=== PATIENT | female | born 1975 | race African-American/Black ===

== ENCOUNTER 2016-04-14 23:07 | Emergency (ER) | payer BC ==
[2016-04-14 23:17] VITALS: BP 123/71; PULSE 83; TEMP 99.4; BMI 25.4
[2016-04-14] MEDS ORDERED: SODIUM CHLORIDE 0.9% 1000 ML INFUS.BAG IV ONE (23:52)
[2016-04-14] MEDS ORDERED: ACETAMINOPHEN 1000 MG/100 ML VIAL (NON FORMULARY) IVPB ONE (23:52)
[2016-04-15] MEDS ORDERED: ACETAMINOPHEN INJECTION 100 ML IVPB ONE (00:14)
--- NOTE | 2016-04-15 00:14 | PDOC ---
History of Present Illness - General Chief Complaint: Respiratory Stated Complaint: FEVER/ 8 WKS Time Seen by Provider: 04/14/16 23:33 History Source: Patient Exam Limitations: No Limitations - History of Present Illness Initial Comments: 04/14/16 23:48 Patient is a 40-year-old female history of seasonal allergies, who is 8 weeks complaining of runny nose, body ache, chills since today. States she feels like her eyes are on fire in her ears are burning throbbing pain to the throat. States that about 9:00 she took her temperature and it was 100.3 she took Tylenol at 6 PM without relief of symptoms. Positive flu shot December. She denies any abdominal pain, dysuria, vaginal bleeding. PMD: Dr. Pina OBS: Dr. Gallardo PMHx: As above PSocHx: Negative cigarette, neg etoh, neg drugs FamHX: Noncontributory ALL: PCN GENERAL/CONSTITUTIONAL: [No fever or chills. No weakness. No weight change.] HEAD, EYES, EARS, NOSE AND THROAT: [No change in vision. No ear pain or discharge. No sore throat, (+) rhinorrhea.] CARDIOVASCULAR: [No chest pain or shortness of breath.] RESPIRATORY: [No cough, wheezing, or hemoptysis.] GASTROINTESTINAL: [No nausea, vomiting, diarrhea or constipation. No rectal bleeding.] GENITOURINARY: [No dysuria, frequency, or change in urination.] MUSCULOSKELETAL: [No joint pain or swelling (+) muscle pain. No neck or back pain.] SKIN AND BREASTS: [No rash or easy bruising.] NEUROLOGIC: [No headache, vertigo, loss of consciousness, or loss of sensation.] PSYCHIATRIC: [No depression or anxiety.] ENDOCRINE: [No increased thirst. No abnormal weight change.] HEMATOLOGIC/LYMPHATIC: [No anemia, easy bleeding, or history of blood clots.] ALLERGIC/IMMUNOLOGIC: [No hives or skin allergy. No latex allergy.] GENERAL: [The patient is awake, alert, and fully oriented, in mild acute distress.] HEAD: [Normal with no signs of trauma.] EYES: [Pupils equal, round and reactive to light, extraocular movements intact, sclera anicteric, conjunctiva clear.] ENT: [Ears normal, nares patent, oropharynx mild erythema, without exudates. Moist mucous membranes.] NECK: [Normal range of motion, supple without lymphadenopathy, JVD, or masses.] LUNGS: [Breath sounds equal, clear to auscultation bilaterally. No wheezes, and no crackles.] HEART: [Regular rate and rhythm, normal S1 and S2 without murmur, rub.] ABDOMEN: [Soft, nontender, normoactive bowel sounds. No guarding, no rebound. No masses.] EXTREMITIES: [Normal range of motion, no edema. No clubbing or cyanosis. No cords, erythema, or tenderness.] NEUROLOGICAL: [Cranial nerves II through XII grossly intact. Normal speech, normal gait.] PSYCH: [Normal mood, normal affect.] SKIN: [Warm, Dry, normal turgor, no rashes or lesions noted.] Past History - Past Medical History Allergies/Adverse Reactions: Allergies Allergy/AdvReac Type Severity Reaction Status Date / Time Penicillins Allergy Verified 04/14/16 23:15 Home Medications: Ambulatory Orders NK [No Known Home Medication] 04/15/16 Disorders: Yes (VAGINAL HERPES) Suicide Attempt (Hx): No - Psycho/Social/Smoking Cessation Hx Suicidal Ideation: No Smoking History: Never smoked *Physical Exam - Vital Signs Last Vital Signs Temp Pulse Resp BP Pulse Ox 99.4 F 83 18 123/71 100 04/14/16 23:11 04/14/16 23:11 04/14/16 23:11 04/14/16 23:11 04/14/16 23:11 ED Treatment Course - LABORATORY CBC & Chemistry Diagram: 04/15/16 01:30 04/15/16 01:30 Medical Decision Making - Medical Decision Making 04/15/16 01:34 Patient is a 40-year-old female history of seasonal allergies, who is 8 weeks complaining of runny nose, body ache, chills since today. most likely viral illness but to rule out the flu Tylenol 1 g IV, IV fluids, labs. Reassess 04/15/16 01:39 Rapid strep negative influenza negative Laboratory Tests 04/15/16 04/15/16 01:30 01:30 WBC 7.9 Hgb 11.5 D Hct 35.1 D Plt Count 297 Sodium 138 Potassium 3.8 Chloride 104 Carbon Dioxide 24 Anion Gap 10 BUN 7 Creatinine 0.5 L Patient feels better after hydration and tylenol I discussed the physical exam findings, ancillary test results and final diagnoses with the patient. I answered all of the patient's questions. The patient was satisfied with the care received and felt comfortable with the discharge plan and treatment plan. The Patient agrees to follow up with the primary care physician within 24-72 hours. *DC/Admit/Observation/Transfer Diagnosis at time of Disposition: Viral illness - Discharge Dispostion Disposition: HOME Condition at time of disposition: Stable - Referrals Referrals: Karl Pina MD [Primary Care Provider] - - Patient Instructions Printed Discharge Instructions: DI for Viral Pharyngitis Additional Instructions: Your Discharge Instructions: You must call primary care physician within 24 hours to arrange follow-up. Return to the Emergency Department with any new, persistent or worsening symptoms, for fever, chills, SOB, dizziness or any other concerning changes that may occur. - Post Discharge Activity Work/School Note: Back to Work
[2016-04-15 01:32] LABS: MCHC 32.6 g/dl (32.0-36.0); MEAN CELL VOLUME 91.9 fl (80-96); MEAN PLT VOLUME 9.3 fl (7.5-11.1); PLATELET COUNT 297 K/MM3 (134-434); RDW 12.8 % (11.6-15.6); WHITE BLOOD COUNT 7.9 K/mm3 (4.0-10.0)
[2016-04-15 01:51] LABS: CALCIUM 8.2 mg/dL (8.5-10.1); CREATININE 0.5 mg/dL (0.55-1.02)
== END 2016-04-15 02:31 | disposition home or self-care (01) ==
LOC: JER 23:07
PROC: 3E033NZ Introduction of Analgesics, Hypnotics, Sedatives into Peripheral Vein, Percutaneous Approach (ICD-10-PCS; principal; 2016-04-14)
DX: O98.511 Other viral diseases complicating pregnancy, first trimester (principal); J02.9 Acute pharyngitis, unspecified; B97.89 Other viral agents as the cause of diseases classified elsewhere; Z3A.08 8 weeks gestation of pregnancy
CPT/HCPCS: 36415; 80048; 85027; 87070; 87430; 87804; 99282-25

== ENCOUNTER 2016-11-20 19:15 | Inpatient (IN) | payer BC ==
[2016-11-20] MEDS ORDERED: DEXTROSE 5%-LACTATED RINGERS 1,000 ML IV SCH ×2 (21:00→22:15)
[2016-11-20] MEDS ORDERED: DINOPROSTONE 10 MG VAGINAL SUPPOSITORY VG ONE (21:00)
[2016-11-20] MEDS ORDERED: TUBERCULIN PPD 5 TU/0.1ML SYRINGE (IN PATIENT USE ONLY) ID ONE (21:00)
[2016-11-20 21:02] LABS: BASOPHIL 0.4 % (0-2.0); EOSINOPHIL 0.7 % (0-4.5); MCH 31.2 pg (25.7-33.7); MCHC 34.2 g/dl (32.0-36.0); MEAN CELL VOLUME 91.2 fl (80-96); MEAN PLT VOLUME 8.3 fl (7.5-11.1); PLATELET COUNT 342 K/MM3 (134-434); RDW 14.8 % (11.6-15.6)
[2016-11-20 21:25] VITALS: BMI 27.4
[2016-11-20 21:28] LABS: ANION GAP 10 (8-16); CALCIUM 9.2 mg/dL (8.5-10.1); CO2 23 mmol/L (21-32); CREATININE 0.6 mg/dL (0.55-1.02); GLUCOSE,RANDOM 75 mg/dL (74-106)
[2016-11-20 21:43] LABS: INR 0.96 (0.82-1.09); PROTHROMBIN TIME (PATIENT) 10.6 SEC (9.98-11.88)
--- NOTE | 2016-11-20 22:15 | HP ---
Past Medical History - Admission Chief Complaint: Elective induction History of Present Illness: 40 yo @ 39 weeks gestation, presents for induction of labor. EDC 11/24/16 She denies any vaginal bleeding nor ROM. History Source: Patient Limitations to Obtaining History: No Limitations - Past Medical History ...: 2 ...Para: 1 ...Term: 1 ...: 0 ...Spon : 0 ...Induced : 0 ...Multiple Gestation: 0 ...EDC by Sono: 11/24/16 - Past Surgical History Past Surgical History: Yes: None Hx Myomectomy: No Hx Transabdominal Cerclage: No - Smoking History Smoking history: Never smoked Have you smoked in the past 12 months: No - Alcohol/Substance Use Hx Alcohol Use: No History of Substance Use: reports: None - Social History Usual Living Arrangement: Yes: With Significant Other History of Recent Travel: No Home Medications - Allergies Allergies/Adverse Reactions: Allergies Allergy/AdvReac Type Severity Reaction Status Date / Time Penicillins Allergy Verified 04/14/16 23:15 - Home Medications Home Medications: Ambulatory Orders Tablet 1 tablet PO DAILY 11/20/16 Family Disease History - Family Disease History Family History: Unremarkable Review of Systems - Review of Systems Constitutional: reports: No Symptoms Eyes: reports: No Symptoms HENT: reports: No Symptoms Neck: reports: No Symptoms Cardiovascular: reports: No Symptoms Respiratory: reports: No Symptoms Gastrointestinal: reports: No Symptoms Genitourinary: reports: No Symptoms Breasts: reports: No Symptoms Reported Musculoskeletal: reports: No Symptoms Integumentary: reports: No Symptoms Neurological: reports: No Symptoms Endocrine: reports: No Symptoms Hematology/Lymphatic: reports: No Symptoms Psychiatric: reports: No Symptoms Pain Intensity: 0 Physical Exam - Maternity Vital Signs: Vital Signs Temperature 98.2 F 11/20/16 22:00 Pulse Rate 85 11/20/16 22:00 Respiratory Rate 18 11/20/16 22:00 Blood Pressure 115/73 11/20/16 22:00 O2 Sat by Pulse Oximetry (%) Constitutional: Yes: Well Nourished Eyes: Yes: Conjunctiva Clear HENT: Yes: Atraumatic Neck: Yes: Supple Cardiovascular: Yes: Regular Rate and Rhythm Lungs: Clear to auscultation - Abdominal Exam/OB Number of Fetuses: Single Presentation: Vertex Contractions: No - Vaginal Exam/OB Vaginal Bleediing: No Dilatation (cm): 0 Effacement (%): 60 Station: -2 - Physical Exam Musculoskeletal: Yes: WNL Extremities: Yes: WNL ...Motor Strength: WNL Psychiatric: Yes: Alert, Oriented - Labs Lab Results: CBC, BMP 11/20/16 20:50 11/20/16 20:50 Problem List - Problems (1) Code(s): Z34.90 - ENCNTR FOR SUPRVSN OF NORMAL , UNSP, UNSP TRIMESTER Qualifiers: Weeks of gestation: 39 weeks Qualified Code(s): Z3A.39 - 39 weeks gestation of (2) Advanced maternal age (AMA) in Code(s): RQA1809 - Assessment/Plan Advance maternal age in Admit for cervidil induction Re-evaluate in 12 hours or before if indicated
[2016-11-21] MEDS ORDERED: CLINDAMYCIN 900 MG PREMIX IVPB 50 ML IVPB ONE (06:30)
[2016-11-21] MEDS ORDERED: BUTORPHANOL TARTRATE 1 MG/ML VIAL IVPUSH PRN ×2 (10:14→10:15)
[2016-11-21] MEDS ORDERED: PROMETHAZINE HCL 25 MG/1 ML VIAL IVPUSH PRN (10:15)
[2016-11-21] MEDS ORDERED: OXYTOCIN 15 UNITS/ LR 250 ML 250 ML IVPB SCH (10:15)
[2016-11-21] MEDS: CLINDAMYCIN 600MG PREMIX IVPB 50 ML IVPB SCH ×2 (12:45→18:45)
[2016-11-21] MEDS ORDERED: METHYLERGONOVINE MALEATE 0.2 MG/1 ML AMP IM PRN (15:32)
[2016-11-21] MEDS ORDERED: BISACODYL 10 MG SUPP.RECT RC PRN (15:32)
[2016-11-21] MEDS ORDERED: WITCH HAZEL 50% (TUCKS) 40 PAD/JAR PAD TP PRN (15:32)
[2016-11-21] MEDS ORDERED: BENZOCAINE 28 GM HEMORRHOIDAL OINTMENT TP PRN (15:32)
[2016-11-21] MEDS ORDERED: BENZOCAINE 20% 57 GM BOTTLE TP PRN (15:32)
[2016-11-21] MEDS ORDERED: ACETAMINOPHEN 325 MG TABLET (FP) PO PRN (15:32)
[2016-11-21] MEDS ORDERED: IBUPROFEN 600 MG TABLET (FP) PO PRN (15:32)
--- NOTE | 2016-11-21 15:35 | PN ---
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
[2016-11-21] MEDS ORDERED: D5W-LR W/ 20 UNITS OXYTOCIN 1,000 ML IV SCH (15:45)
[2016-11-21] MEDS: FERROUS SO4 325 MG TABLET (FP) PO SCH (17:30)
[2016-11-21] MEDS: SENNOSIDES/DOCUSATE COMBO (SENNA PLUS) TABLET (UD) PO PRN (21:47)
[2016-11-22 08:11] LABS: BASOPHIL 0.2 % (0-2.0); EOSINOPHIL 0.5 % (0-4.5); MCH 31.2 pg (25.7-33.7); MCHC 34.3 g/dl (32.0-36.0); MEAN PLT VOLUME 7.9 fl (7.5-11.1); NEUTROPHILS 73.2 % (42.8-82.8); PLATELET COUNT 246 K/MM3 (134-434); RDW 14.8 % (11.6-15.6); WHITE BLOOD COUNT 11.2 K/mm3 (4.0-10.0)
[2016-11-22] MEDS: FERROUS SO4 325 MG TABLET (FP) PO SCH ×3 (09:08→17:46)
[2016-11-22] MEDS: PRENATAL VITAMINS W/ FOLIC ACID TABLET (FP) PO SCH (09:08)
--- NOTE | 2016-11-22 09:14 | PN ---
Post Progress Note - Subjective Subjective: Pt seen/evaluated and doing well. Pain controlled, tolerating diet, ambulating , voiding, passing flatus. Type of Delivery: Vital Signs: Vital Signs Temperature 98.0 F 11/22/16 06:00 Pulse Rate 74 11/22/16 06:00 Respiratory Rate 20 11/22/16 06:00 Blood Pressure 121/74 11/22/16 06:00 O2 Sat by Pulse Oximetry (%) 98 11/21/16 16:31 Breast Exam: Yes: Soft Uterus: Yes: Fundus Firm, Fundus below umbilicus Abdomen/GI: Yes: Abdomen soft, Passing flatus, Tolerating PO. No: Tender Lochia: Yes: Rubra Lochia, amount: Small Extremities: Yes: Calves non-tender. No: Edema Perineum: Yes: Intact Activity: Ambulating - Labs Labs: CBC WBC 11.2 K/mm3 (4.0-10.0) H D 11/22/16 06:00 RBC 2.83 M/mm3 (3.60-5.2) L D 11/22/16 06:00 Hgb 8.8 GM/dL (10.7-15.3) L D 11/22/16 06:00 Hct 25.8 % (32.4-45.2) L D 11/22/16 06:00 MCV 91.0 fl (80-96) 11/22/16 06:00 MCH 31.2 pg (25.7-33.7) 11/22/16 06:00 MCHC 34.3 g/dl (32.0-36.0) 11/22/16 06:00 RDW 14.8 % (11.6-15.6) 11/22/16 06:00 Plt Count 246 K/MM3 (134-434) D 11/22/16 06:00 MPV 7.9 fl (7.5-11.1) 11/22/16 06:00 Neutrophils % 73.2 % (42.8-82.8) D 11/22/16 06:00 Lymphocytes % 20.0 % (8-40) D 11/22/16 06:00 Monocytes % 6.1 % (3.8-10.2) 11/22/16 06:00 Eosinophils % 0.5 % (0-4.5) 11/22/16 06:00 Basophils % 0.2 % (0-2.0) 11/22/16 06:00 Problem List - Problems (1) Normal vaginal delivery Code(s): O80 - ENCOUNTER FOR FULL-TERM UNCOMPLICATED DELIVERY (2) Anemia Code(s): D64.9 - ANEMIA, UNSPECIFIED (3) Anemia complicating puerperium Code(s): O99.03 - ANEMIA COMPLICATING THE PUERPERIUM Assessment/Plan 40 y/o PPD#1 s/p normal - AFVSS - Hgb 8.8 post delivery ,continue vitamins and PO Iron - regular diet, PO pain meds, routine care
[2016-11-22] MEDS ORDERED: DIPHTH,PERTUSS(ACELL),TET 0.5 ML DISP.SYRIN IM ONE (10:00)
[2016-11-22] MEDS: SENNOSIDES/DOCUSATE COMBO (SENNA PLUS) TABLET (UD) PO PRN (20:15)
[2016-11-23 08:10] VITALS: BP 121/86; PULSE 79; TEMP 98.5
[2016-11-23] MEDS: FERROUS SO4 325 MG TABLET (FP) PO SCH (08:45)
[2016-11-23] MEDS: SENNOSIDES/DOCUSATE COMBO (SENNA PLUS) TABLET (UD) PO PRN (09:44)
[2016-11-23] MEDS: PRENATAL VITAMINS W/ FOLIC ACID TABLET (FP) PO SCH (09:45)
--- NOTE | 2016-11-23 10:07 | DS ---
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 Vital Signs: Vital Signs Temperature 98.5 F 11/23/16 08:05 Pulse Rate 79 11/23/16 08:05 Respiratory Rate 20 11/23/16 08:05 Blood Pressure 121/86 11/23/16 08:05 O2 Sat by Pulse Oximetry (%) 98 11/21/16 16:31 Constitutional: Yes: Well Nourished Eyes: Yes: Conjunctiva Clear HENT: Yes: Atraumatic Neck: Yes: Supple, Trachea Midline Cardiovascular: Yes: Regular Rate and Rhythm Respiratory: Yes: Regular, CTA Bilaterally Gastrointestinal: Yes: Normal Bowel Sounds External Genitalia: Yes: Normal Vaginal Exam: Yes: Normal ....Post : Yes: Uterus firm Breast(s): Yes: WNL Neurological: Yes: Alert, Oriented ...Motor Strength: WNL Psychiatric: Yes: Alert, Oriented Labs: CBC, BMP 11/22/16 06:00 11/20/16 20:50 Delivery - Delivery Vaginal Delivery: Spontaneous Type of Anesthesia: None Episiotomy/Laceration: None EBL (cc): 350 Delivery, Single - Stages of Labor Date 1st Stage Initiatied: 11/21/16 Time 1st Stage Initiated: 10:00 Date 2nd Stage Initiated: 11/21/16 Time 2nd Stage Initiated: 14:00 Date of Delivery: 11/21/16 Time of Delivery: 14:21 Time Placenta Delivered: 14:26 - Condition of Diver Helper/Mine Administrator Supervisor Present: [place]: Sam Garcia Infant Gender: Male Weight: 8 lb 6 oz Position: Right, OA Total Hours ROM (Hrs/Mins): 4hr/40mins - 1 Minute Total Score: 8 5 Minutes Total Score: 9 - Feeding Plan Initial Plan: Elected not to breastfeed exclusively throughout hospitalization Remarks - Remarks Remarks: Normal spontaneous vaginal delivery of a live infant boy over intact perineum. Nose / Oropharynx suctioned @ perineum. Cord clamped and cut. Placenta expelled spontaneously intact. Mother in stable condition. Discharge Summary Reason For Visit: INDUCTION Current Active Problems Advanced maternal age (AMA) in (Acute) Anemia (Acute) Anemia complicating puerperium (Acute) Normal vaginal delivery (Acute) (Acute) Status post normal vaginal delivery (Acute) Procedures: Principal: Normal spontaneous vaginal delivery Hospital Course: Routine care Condition: Good - Instructions Diet, Activity, Other Instructions: return to MD office in 6weeks, call office for an appointment. Referrals: Rupinder Weir MD [Staff Physician] - Disposition: HOME - Home Medications Comprehensive Discharge Medication List: Ambulatory Orders Tablet 1 tablet PO DAILY 11/20/16
== END 2016-11-23 11:00 | disposition home or self-care (01) | DRG 775 ==
LOC: JLDR 19:15 → J3W 11-21 16:58
PROVIDERS: ADMIT Obstetrics & Gynecology; ATTEND Obstetrics & Gynecology
PROC: 3E0P7GC Introduction of Other Therapeutic Substance into Female Reproductive, Via Natural or Artificial Opening (ICD-10-PCS; 2016-11-20)
PROC: 10E0XZZ Delivery of Products of Conception, External Approach (ICD-10-PCS; principal; 2016-11-21)
DX: O99.02 Anemia complicating childbirth (principal); Z3A.39 39 weeks gestation of pregnancy; Z37.0 Single live birth
CPT/HCPCS: 36415; 59409; 80048; 85025; 85610; 85730; 86593; 86850; 86900; 86901; 90715

== ENCOUNTER 2018-02-09 17:45 | Inpatient (IN) | payer BC ==
[2018-02-09 18:33] VITALS: BMI 28.7
[2018-02-09] MEDS ORDERED: DEXTROSE 5%-LACTATED RINGERS 1,000 ML IV SCH ×2 (18:45→21:30)
[2018-02-09] MEDS ORDERED: ceFAZolin SODIUM 1 GM VIAL ONE (19:41)
[2018-02-09] MEDS ORDERED: CLINDAMYCIN PHOSPHATE 600 MG/4 ML VIAL ONE (19:43)
[2018-02-09] MEDS ORDERED: CLINDAMYCIN 900 MG PREMIX IVPB 900 MG/50 ML BAG IVPB ONE (19:45)
[2018-02-09 19:53] LABS: BASO % 0.2 % (0-2.0); EOS % 0.7 % (0-4.5); HEMATOCRIT 33.1 % (32.4-45.2); HEMOGLOBIN 11.3 GM/dL (10.7-15.3); LYMPH % 31.4 % (8-40); MCH 31.6 pg (25.7-33.7); MCHC 34.3 g/dl (32.0-36.0); MEAN CELL VOLUME 92.2 fl (80-96); MEAN PLT VOLUME 8.3 fl (7.5-11.1); MONO % 7.1 % (3.8-10.2); NEUT % 60.6 % (42.8-82.8); PLATELET COUNT 324 K/MM3 (134-434); RBC 3.59 M/mm3 (3.60-5.2); RDW 14.4 % (11.6-15.6); WHITE BLOOD COUNT 6.2 K/mm3 (4.0-10.0)
[2018-02-09 20:06] LABS: INR 1.02 (0.83-1.09)
[2018-02-09 20:08] LABS: ACTIVATED PTT 28.4 SECONDS (25.2-36.5)
[2018-02-09 20:23] LABS: ANION GAP 9 MMOL/L (8-16); BLOOD UREA NITROGEN 5 mg/dL (7-18); CALCIUM 8.2 mg/dL (8.5-10.1); CHLORIDE 106 mmol/L (98-107); CO2 24 mmol/L (21-32); CREATININE 0.4 mg/dL (0.55-1.3); GLUCOSE,RANDOM 95 mg/dL (74-106); POTASSIUM 3.6 mmol/L (3.5-5.1); SODIUM 139 mmol/L (136-145)
[2018-02-09] MEDS ORDERED: BUTORPHANOL TARTRATE 1 MG/ML VIAL IVPUSH PRN (21:26)
--- NOTE | 2018-02-09 21:26 | HP ---
Past Medical History - Admission Chief Complaint: Contractions History of Present Illness: 42 yo @ 37.6 weeks gestation, EDC 02/24/18, admitted for contractions pain. Upon admission she was 5cm dilated. History Source: Patient Limitations to Obtaining History: No Limitations - Past Medical History ...: 3 ...Para: 2 ...Term: 2 ...: 0 ...Spon : 0 ...Induced : 0 ...Multiple Gestation: 0 ...LMP: 05/17/17 ... Weeks Gestation by Dates: 38.2 ...EDC by Dates: 02/21/18 ...EDC by Sono: 02/24/18 - Past Surgical History Past Surgical History: Yes: None Hx Myomectomy: No Hx Transabdominal Cerclage: No - Smoking History Smoking history: Unknown if ever smoked Have you smoked in the past 12 months: No - Alcohol/Substance Use Hx Alcohol Use: No History of Substance Use: reports: None - Social History Usual Living Arrangement: Yes: With Significant Other History of Recent Travel: No Home Medications - Allergies Allergies/Adverse Reactions: Allergies Allergy/AdvReac Type Severity Reaction Status Date / Time Penicillins Allergy Verified 02/09/18 18:37 - Home Medications Home Medications: Ambulatory Orders Tablet 1 tablet PO DAILY 11/20/16 Family Disease History - Family Disease History Family History: Unremarkable Review of Systems - Review of Systems Constitutional: reports: No Symptoms Eyes: reports: No Symptoms Neck: reports: No Symptoms Cardiovascular: reports: No Symptoms Respiratory: reports: No Symptoms Gastrointestinal: reports: No Symptoms Genitourinary: reports: Pain Breasts: reports: No Symptoms Reported Musculoskeletal: reports: No Symptoms Integumentary: reports: No Symptoms Neurological: reports: No Symptoms Endocrine: reports: No Symptoms Hematology/Lymphatic: reports: No Symptoms Psychiatric: reports: No Symptoms Pain Intensity: 5 Physical Exam - Maternity Vital Signs: Vital Signs Temperature 98.2 F 02/09/18 17:45 Pulse Rate 84 02/09/18 20:00 Respiratory Rate 20 02/09/18 20:00 Blood Pressure 112/51 L 02/09/18 20:00 O2 Sat by Pulse Oximetry (%) Constitutional: Yes: Well Nourished Eyes: Yes: Conjunctiva Clear HENT: Yes: Atraumatic Neck: Yes: Supple Cardiovascular: Yes: Regular Rate and Rhythm Lungs: Clear to auscultation - Abdominal Exam/OB Number of Fetuses: Single Presentation: Vertex Contractions: No Regularity: Irregular Intensity: Mild - Vaginal Exam/OB Dilatation (cm): 5 Effacement (%): 80 Amniotic Membrane Status: Intact Station: -2 - Physical Exam Musculoskeletal: Yes: WNL Extremities: Yes: WNL ...Motor Strength: WNL Psychiatric: Yes: Alert, Oriented - Labs Lab Results: CBC, BMP 02/09/18 19:20 02/09/18 19:20 Problem List - Problems (1) Pain during labor Code(s): O99.89 - OTH DISEASES AND CONDITIONS COMPL PREG/CHLDBRTH; R52 - PAIN, UNSPECIFIED Assessment/Plan Labor pain Admit to L&D Analgesia as needed anticipate
[2018-02-09] MEDS ORDERED: PROMETHAZINE HCL 25 MG/1 ML VIAL IVPB PRN (21:27)
[2018-02-09] MEDS ORDERED: BUTORPHANOL TARTRATE 1 MG/ML VIAL ONE ×2 (22:00)
[2018-02-09] MEDS ORDERED: PROMETHAZINE HCL 25 MG/1 ML VIAL ONE (22:00)
[2018-02-09] MEDS ORDERED: LIDOCAINE HCL 1% PRESERVATIVE FREE - 30ML VIAL ONE (23:59)
[2018-02-09] MEDS ORDERED: OXYTOCIN 20 UNITS in 0.9% NS 20 UNIT/1,000 ML INFUS.BAG IV ONE (23:59)
[2018-02-10] MEDS ORDERED: BENZOCAINE 20% 57 GM BOTTLE TP PRN (00:35)
[2018-02-10] MEDS ORDERED: METHYLERGONOVINE MALEATE 0.2 MG/1 ML AMP IM PRN (00:35)
[2018-02-10] MEDS ORDERED: WITCH HAZEL 50% (TUCKS) 40 PAD/JAR PAD TP PRN (00:35)
[2018-02-10] MEDS ORDERED: IBUPROFEN 600 MG TABLET (FP) PO PRN (00:35)
[2018-02-10] MEDS ORDERED: ACETAMINOPHEN 325 MG TABLET (FP) PO PRN (00:35)
[2018-02-10] MEDS ORDERED: BENZOCAINE 28 GM HEMORRHOIDAL OINTMENT TP PRN (00:35)
[2018-02-10] MEDS ORDERED: BISACODYL 10 MG SUPP.RECT RC PRN (00:35)
--- NOTE | 2018-02-10 00:38 | PN ---
Delivery - Delivery Vaginal Delivery: Spontaneous Episiotomy/Laceration: None EBL (cc): 250 Delivery, Single - Feeding Plan Initial Plan: Elected not to breastfeed exclusively throughout hospitalization Remarks - Remarks Remarks: Normal spontaneous vaginal delivery of a live infant boy over intact perineum. Nose / Oropharynx suctioned @ perineum. Cord clamped and cut. Placenta expelled spontaneously intact. Baby handed to nurse. Mother in stable condition.
[2018-02-10] MEDS ORDERED: OXYTOCIN 20 UNITS in 0.9% NS 20 UNIT/1,000 ML INFUS.BAG IV SCH (00:45)
[2018-02-10] MEDS ORDERED: ACETAMINOPHEN 325 MG TABLET (FP) ONE (01:19)
[2018-02-10] MEDS ORDERED: IBUPROFEN 600 MG TABLET (FP) PO ONE (01:19)
[2018-02-10] MEDS ORDERED: CLINDAMYCIN 300 MG PREMIX IVPB 300 MG/50 ML BAG IVPB SCH (01:45)
[2018-02-10] MEDS: FERROUS SO4 325 MG TABLET (FP) PO SCH ×3 (08:00→17:46)
[2018-02-10] MEDS: PRENATAL VITAMINS W/ FOLIC ACID TABLET (FP) PO SCH (10:00)
[2018-02-11 08:10] LABS: BASO % 0.3 % (0-2.0); HEMATOCRIT 29.4 % (32.4-45.2); HEMOGLOBIN 9.7 GM/dL (10.7-15.3); LYMPH % 26.7 % (8-40); MCH 30.8 pg (25.7-33.7); MCHC 33.1 g/dl (32.0-36.0); MEAN PLT VOLUME 8.3 fl (7.5-11.1); PLATELET COUNT 265 K/MM3 (134-434); RBC 3.16 M/mm3 (3.60-5.2); RDW 14.8 % (11.6-15.6); WHITE BLOOD COUNT 8.1 K/mm3 (4.0-10.0)
[2018-02-11] MEDS: FERROUS SO4 325 MG TABLET (FP) PO SCH ×3 (08:15→17:54)
[2018-02-11] MEDS: PRENATAL VITAMINS W/ FOLIC ACID TABLET (FP) PO SCH (09:54)
[2018-02-11] MEDS ORDERED: DIPHTH,PERTUSS(ACELL),TET 0.5 ML DISP.SYRIN IM ONE (10:00)
[2018-02-11] MEDS ORDERED: SENNOSIDES/DOCUSATE COMBO (SENNA PLUS) TABLET (UD) PO PRN (22:00)
[2018-02-12 00:08] VITALS: TEMP 98.7
--- NOTE | 2018-02-12 03:21 | DS ---
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 Vital Signs: Vital Signs Temperature 98.7 F 02/11/18 21:00 Pulse Rate 80 02/11/18 21:00 Respiratory Rate 18 02/11/18 21:00 Blood Pressure 118/74 02/11/18 21:00 O2 Sat by Pulse Oximetry (%) Labs: CBC, BMP 02/11/18 06:30 02/09/18 19:20 Delivery - Delivery Vaginal Delivery: Spontaneous Type of Anesthesia: None Episiotomy/Laceration: None EBL (cc): 250 Delivery, Single - Stages of Labor Date 1st Stage Initiatied: 02/10/18 Time 1st Stage Initiated: 22:15 Date 2nd Stage Initiated: 02/10/18 Time 2nd Stage Initiated: 00:10 Date of Delivery: 02/10/18 Time of Delivery: 00:22 Time Placenta Delivered: 00:24 - Condition of Medical Billing Coder/Manager Flight Operations Present: No Gender: Male Weight: 6 lb 11.8 oz Position: Left, OA Total Hours ROM (Hrs/Mins): 3HOURS/4min - 1 Minute Total Score: 9 5 Minutes Total Score: 9 - Kite Feeding Plan Initial Plan: Elected not to breastfeed exclusively throughout hospitalization Discharge Summary Reason For Visit: LABOR Current Active Problems Pain during labor (Acute) Condition: Good - Instructions Diet, Activity, Other Instructions: Physical activity Resume your normal everyday activity as tolerated no heavy lifting or exercise until seen by your doctor. You may walk unlimited amounts and climb stairs. You may resume driving the car when you feel safe and comfortable behind the wheel. No sexual activity as instructed for 6 weeks. Wound care If you have stitches, they will dissolve. DO NOT attempt to remove them. You may shower daily, do not soak in tubs/baths/pools for 6 weeks. Diet There are no dietary restrictions. Eat healthy, high-fiber foods. Drink 6 to 8 glasses of liquid each day. This will assist in keeping your bowels regular. Pain management You may take Tylenol or Ibuprofen (for example, Motrin, Advil etc.) as needed for pain. Call MD for any of the following: Severe pain not relieved by medication Fever of 101 or higher Excessive bleeding or drainage on dressing Inability to urinate Disposition: HOME - Home Medications Comprehensive Discharge Medication List: Ambulatory Orders Tablet 1 tablet PO DAILY 11/20/16
[2018-02-12] MEDS: FERROUS SO4 325 MG TABLET (FP) PO SCH (08:02)
[2018-02-12 08:33] VITALS: BP 138/92; PULSE 90
[2018-02-12] MEDS: PRENATAL VITAMINS W/ FOLIC ACID TABLET (FP) PO SCH (09:02)
== END 2018-02-12 11:30 | disposition home or self-care (01) | DRG 807 ==
LOC: JLDR 17:45 → J3W 02-10 02:30
PROVIDERS: ADMIT Obstetrics & Gynecology; ATTEND Obstetrics & Gynecology
PROC: 10E0XZZ Delivery of Products of Conception, External Approach (ICD-10-PCS; principal; 2018-02-10)
DX: O80 Encounter for full-term uncomplicated delivery (principal); Z37.0 Single live birth; Z3A.37 37 weeks gestation of pregnancy
CPT/HCPCS: 36415; 59409; 80048; 85025; 85610; 85730; 86593; 86850; 86900; 86901; 90686; 90715; G0008

== ENCOUNTER 2018-04-30 06:08 | Day surgery (SDC) | payer BC ==
[2018-04-22 11:21] VITALS: BMI 25.7
[2018-04-30] MEDS ORDERED: PROPOFOL 20 ML ONE ×2 (13:59→14:41)
[2018-04-30] MEDS ORDERED: MIDAZOLAM HCL 2 MG/2 ML SINGLE DOSE VIAL ONE (13:59)
[2018-04-30] MEDS ORDERED: ROCURONIUM BROMIDE 50 MG/5 ML VIAL ONE (13:59)
[2018-04-30] MEDS ORDERED: DEXAMETHASONE SOD PHOSPHATE 4 MG/1 ML VIAL ONE (14:03)
[2018-04-30] MEDS ORDERED: LIDOCAINE HCL/PF 2% SDV 5ML VIAL ONE (14:03)
[2018-04-30] MEDS ORDERED: BUPIVACAINE HCL/PF 0.5% (5MG/ML) 10 ML VIAL ONE (14:10)
[2018-04-30] MEDS ORDERED: PROMETHAZINE HCL 25 MG/1 ML VIAL IVPUSH PRN (14:15)
[2018-04-30] MEDS ORDERED: oxyCODONE HCL 5 MG TABLET PO PRN (14:15)
[2018-04-30] MEDS ORDERED: ONDANSETRON 4 MG/2 ML VIAL IVPUSH PRN (14:15)
[2018-04-30] MEDS ORDERED: LACTATED RINGERS SOLUTION 1,000 ML IV SCH (14:15)
--- NOTE | 2018-04-30 14:31 | HP ---
Admitting History and Physical - Admission Chief Complaint: Multiparity History of Present Illness: 42 yo Para 3 is pre op for lap bilateral tubal ligation. History Source: Patient Limitations to Obtaining History: No Limitations - Past Medical History ...LMP: 04/16/18 ...: No ...Para: 3 - Past Surgical History Past Surgical History: Yes: None - Smoking History Smoking history: Never smoked Have you smoked in the past 12 months: No - Alcohol/Substance Use Hx Alcohol Use: No History of Substance Use: reports: None - Social History History of Recent Travel: No Home Medications - Allergies Allergies/Adverse Reactions: Allergies Allergy/AdvReac Type Severity Reaction Status Date / Time Penicillins Allergy Unknown Verified 04/30/18 13:30 - Home Medications Home Medications: Ambulatory Orders Vit 93/Iron Fum/Folic [ Formula Tablet] 1 each PO DAILY Family Disease History - Family Disease History Family History: Unremarkable Review of Systems - Review of Systems Constitutional: reports: No Symptoms Eyes: reports: No Symptoms HENT: reports: No Symptoms Neck: reports: No Symptoms Cardiovascular: reports: No Symptoms Respiratory: reports: No Symptoms Gastrointestinal: reports: No Symptoms Genitourinary: reports: No Symptoms Breasts: reports: No Symptoms Reported Musculoskeletal: reports: No Symptoms Integumentary: reports: No Symptoms Neurological: reports: No Symptoms Endocrine: reports: No Symptoms Psychiatric: reports: No Symptoms Pain Intensity: 0 Physical Examination Vital Signs: Vital Signs Temperature 98.2 F 04/30/18 13:33 Pulse Rate 68 04/30/18 13:33 Respiratory Rate 16 04/30/18 13:33 Blood Pressure 134/93 04/30/18 13:33 O2 Sat by Pulse Oximetry (%) 99 04/30/18 13:33 Constitutional: Yes: Well Nourished Eyes: Yes: Conjunctiva Clear HENT: Yes: Atraumatic Neck: Yes: Supple Cardiovascular: Yes: Regular Rate and Rhythm Respiratory: Yes: Regular Gastrointestinal: Yes: Normal Bowel Sounds Breast(s): Yes: WNL Musculoskeletal: Yes: WNL Extremities: Yes: WNL Neurological: Yes: Alert, Oriented ...Motor Strength: WNL Psychiatric: Yes: Alert, Oriented Problem List - Problems (1) Multiparity Code(s): Z64.1 - PROBLEMS RELATED TO MULTIPARITY Assessment/Plan Multiparity Pre op for Lap BTL Consent signed Anesthesia to see patient
[2018-04-30] MEDS ORDERED: NEOSTIGMINE METHYLSULFATE 0.5 MG/ML - 10 ML MDV ONE (15:12)
[2018-04-30] MEDS ORDERED: GLYCOPYRROLATE 0.2 MG/1 ML VIAL ONE (15:12)
--- NOTE | 2018-04-30 15:34 | OP ---
Operative Note - Note: Operative Date: 04/30/18 Pre-Operative Diagnosis: Multiparity Operation: Laparoscopic bilateral tubal ligation Post-Operative Diagnosis: Same as Pre-op Surgeon: Rupinder Weir Anesthesia: General Estimated Blood Loss (mls): 3
[2018-04-30 18:35] VITALS: TEMP 97.9
[2018-04-30] MEDS ORDERED: oxyCODONE HCL 5 MG TABLET PO ONE (18:50)
[2018-04-30] MEDS ORDERED: oxyCODONE HCL 5 MG TABLET ONE (18:56)
[2018-04-30] MEDS ORDERED: ONDANSETRON 4 MG/2 ML VIAL IVPB ONE (19:00)
[2018-04-30] MEDS ORDERED: ONDANSETRON 4 MG/2 ML VIAL ONE (19:01)
[2018-04-30 19:53] VITALS: BP 134/89; PULSE 66
--- NOTE | 2018-05-01 10:49 | SURG ---
Surgery Safety Aide Note Safety Aide: Elian Martinez PA-C Date of Service: 04/30/18 Diagnosis: Elective sterilization Procedure: laproscopic salpingectomy I was present for the entirety of the operative procedure. For further detail, please refer to operative report.
--- NOTE | 2018-05-02 06:32 | OP ---
DATE OF OPERATION: DATE OF DICTATION: 05/01/2018 PREOPERATIVE DIAGNOSIS: Multiparity, desires permanent sterilization. POSTOPERATIVE DIAGNOSIS: Multiparity, desires permanent sterilization. PROCEDURE: Laparoscopic bilateral tubal ligation. SURGEON: Rupinder Weir MD BARREL LAPPER: Elian ANESTHESIA: General. COMPLICATIONS: None. ESTIMATED BLOOD LOSS: Less than 5 mL. DESCRIPTION OF PROCEDURE: The patient was taken to the operating room where general anesthesia was administered. The patient was then placed in lithotomy position. She was then prepped and draped in proper sterile fashion. A weighted speculum was placed in the vagina. The anterior lip of the cervix was grasped with a single-tooth tenaculum. Then the Savage was placed and a HUMI uterine manipulator was inserted into the uterus as a means to manipulate the uterus. Attention was then turned to the abdomen where a 5-mm skin incision was made in the umbilical fold. A Veress needle was carefully introduced into the peritoneal cavity while tenting the abdominal wall. Intraperitoneal placement was confirmed by use of a water-filled syringe and drop in intra-abdominal pressure with insufflation of CO2 gas. The trocar and sleeve were then advanced without difficulty into the abdomen where intra-abdominal placement was confirmed by the laparoscope. Pneumoperitoneum was obtained with 3 L of CO2 gas. Then a 5-mm trocar and sleeve were then advanced without difficulty into the abdomen where intra-abdominal placement was confirmed by the laparoscope. The 2nd skin incision was made 2 cm above the pubic symphysis in the midline. The 2nd trocar and sleeve were then advance under direct visualization. A survey of the patient's abdomen revealed normal anatomy. A Kleppinger was used to grasp the right tube. A 3-cm segment of the tube was then cauterized in 3 separate areas. Complete blanching of the portion of the tube was noted. This same procedure was performed on the left side. Then the instruments were removed. The patient was taken out of lithotomy position. She was taken to PACU in stable condition. RUPINDER WEIR M.D. [id number]
== END 2018-04-30 19:50 | disposition home or self-care (01) ==
LOC: JASU-SURG 06:08
PROVIDERS: ATTEND Obstetrics & Gynecology
PROC: 0UL74ZZ Occlusion of Bilateral Fallopian Tubes, Percutaneous Endoscopic Approach (ICD-10-PCS; principal; 2018-04-30 14:30)
DX: Z30.2 Encounter for sterilization (principal)
CPT/HCPCS: 84703; 94760

== ENCOUNTER 2023-11-03 15:23 | Emergency (ER) | payer BC, OTHER ==
[2023-11-03 16:19] VITALS: BP 129/84; PULSE 66; RESP 18; TEMP 98.3; BMI 25.7
[2023-11-03] MEDS ORDERED: LIDOCAINE 4% PATCH TP ONE (17:54)
[2023-11-03] MEDS ORDERED: KETOROLAC TROMETHAMINE 30 MG/1 ML VIAL ONE (17:54)
[2023-11-03] MEDS ORDERED: ACETAMINOPHEN 500 MG TABLET (FP) ONE (17:55)
[2023-11-03] MEDS: LIDOCAINE 4% PATCH TP ONE (18:06)
[2023-11-03] MEDS: ACETAMINOPHEN 500 MG TABLET (FP) PO ONE (18:07)
[2023-11-03] MEDS: KETOROLAC TROMETHAMINE 30 MG/1 ML VIAL IM ONE (18:07)
[2023-11-03] MEDS ORDERED: LIDOCAINE PATCH REMOVAL MC SCH (22:00)
== END 2023-11-03 18:10 | disposition home or self-care (01) ==
LOC: JERFT 15:23
PROC: 3E0233Z Introduction of Anti-inflammatory into Muscle, Percutaneous Approach (ICD-10-PCS; principal; 2023-11-03)
DX: M54.50 Low back pain, unspecified (principal); M54.6 Pain in thoracic spine; M54.2 Cervicalgia; V49.40XA Driver injured in collision with unspecified motor vehicles in traffic accident, initial encounter; Y92.410 Unspecified street and highway as the place of occurrence of the external cause
CPT/HCPCS: 99284-25